=== PATIENT | male | born 1965 | race Caucasian/White ===

== ENCOUNTER 2017-06-25 06:50 | Day surgery (SDC) | payer OTHER ==
[~2017-06-25] VITALS: Ht 180.3 cm; Wt 113.4 kg
[~2017-06-25 06:50] MED LIST: CYCLOBENZAPRINE5 MG PO; DAILY MULTIPLE1 EACH PO; FISH OIL 1,0001 EAC2 NG; LOSARTAN POTASS25 MG PO; METFORMIN HCL500 MG PO; NORCO 7.5-3251 EACH PO; ULTRAM50 MG PO
--- NOTE | 2017-06-25 09:50 | NUR ---
06/25/17 0950 Kierra Iglesias 0938 PATIENT ARRIVES TO PACU SLEEPING, NODS HEAD WITH VERBAL STIMULI. RESP EVEN AND UNLABORED, SNORING AT TIMES. MASK AT 6 LITERS. 0942 PATIENT TOOK HIS MASK OFF, ROOM AIR SATS 90-93% ON ROOM AIR. ICE TO RIGHT SHOULDER. SLING IN PLACE FROM OR. 0950 PATIENT AWAKE OFF/ON. RESP EVEN AND UNLABORED. DENIES PAIN OR NAUSEA.
--- NOTE | 2017-06-25 10:14 | NUR ---
PT UP TO BR W/RN STANDBY. PT AMBULATES WELL AND DENIES DIZZINESS. PT VOIDS AND IS BACK IN BED. PHONE CALL TO PT'S GIRLFRIEND TO LET HER KNOW HE WILL BE READY IN ABOUT AN HOUR. CALL LIGHT W/IN REACH. COFFEE AND ICED WATER GIVEN.
--- NOTE | 2017-06-25 11:06 | NUR ---
VERBAL DC INSTRUCTIONS GIVEN IN PRESENCE OF SIGNIFICANT OTHER AND BOTH VERBALIZE UNDERSTANDING.
--- NOTE | 2017-06-25 11:20 | NUR ---
PT DRESSES SELF IN PRESENCE OF SIGNIFICANT OTHER AND TRANSFERS HIMSELF TO THE WELL.
--- NOTE | 2017-06-30 07:11 | OR ---
[facility] [address] [place], [place] [address] Signed DATE OF OPERATION: 06/25/2017 SURGEON: Brandon Cm MD PREOPERATIVE DIAGNOSIS: Loose bodies, right shoulder. POSTOPERATIVE DIAGNOSIS: Loose bodies, right shoulder. PROCEDURE: Shoulder arthroscopy with removal of loose bodies via morselization. ANESTHESIA: General. SPECIMENS AND COMPLICATIONS: There were no specimens or complications. TOURNIQUET: Not used. BLOOD LOSS: Minimal. WHAT WAS DONE: The patient was taken to the operating room. After anesthesia was induced and the airway secured, the patient was positioned, prepped and draped in a routine sterile fashion. The bony topography was outlined with a skin marking pen and the arthroscope was inserted through the standard posterior portal. An auxiliary anterior portal was created using a switching stick technique. Nerve hook was introduced anteriorly. Diagnostic arthroscopy was performed. The rotator cuff was unremarkable as was the biceps. There were significant degenerative changes on the anterior inferior aspect of the glenoid with some minor reciprocal changes on the humeral head. The subscap was unremarkable. There was a rather significant synovitis into the subscapular recess. We then switched to the 70-degree scope. We did a limited synovectomy of the anterior subscapular pouch and the loose body was actually not loose at all. He was actually attached to some underlying soft tissue and was not freely mobile. We made another auxiliary anterior portal using a switching stick technique again and used the 4.0 mm shaver to morselize the loose body and suctioned out of the shoulder. The wound was Electronically Signed By: BRANDON CM MD 06/30/17 0711 PATIENT NAME: GABBY ORR OPERATIVE REPORT DATE OF : 63 REPORT #: [id number] PHYSICIAN: BRANDON CM MD PCP: Ofe LINDSEY MD REPORT IS CONFIDENTIAL AND NOT TO BE RELEASED WITHOUT AUTHORIZATION [facility] [address] [place], [place] [address] Signed then gently irrigated and the incisions were closed. Sterile dressing was applied. The patient was awakened and taken to recovery room where he arrived in stable condition. Counts were correct and antibiotic protocols were followed. Brandon Cm MD WFB/MODL /[id number] Copies: ~ Electronically Signed By: BRANDON CM MD 06/30/17 0711 PATIENT NAME: GABBY ORR OPERATIVE REPORT DATE OF : 63 REPORT #: [id number] PHYSICIAN: BRANDON CM MD PCP: Ofe LINDSEY MD REPORT IS CONFIDENTIAL AND NOT TO BE RELEASED WITHOUT AUTHORIZATION
== END 2017-06-25 11:20 | disposition home or self-care (01) ==
LOC: DS 06:50
PROVIDERS: Orthopaedic Surgery
PROC: 0RCJ4ZZ Extirpation of Matter from Right Shoulder Joint, Percutaneous Endoscopic Approach (ICD-10-PCS; principal; 2017-06-25 08:00)
DX: M24.011 Loose body in right shoulder (principal); I10 Essential (primary) hypertension; G47.30 Sleep apnea, unspecified; E11.9 Type 2 diabetes mellitus without complications; M19.90 Unspecified osteoarthritis, unspecified site; Z87.891 Personal history of nicotine dependence; Z79.84 Long term (current) use of oral hypoglycemic drugs; Z79.899 Other long term (current) drug therapy
CPT/HCPCS: 01630; 64415; 76942; J0690; J1100; J1885; J2250; J2405; J2704; J2765; J2795; J3010; J7120

== ENCOUNTER 2017-06-25 13:03 | Emergency (ER) | payer OTHER, BC ==
[~2017-06-25] VITALS: Ht 180.3 cm; Wt 113.4 kg
== END 2017-06-25 15:03 | disposition home or self-care (01) ==
LOC: ED 13:03
DX: G56.81 Other specified mononeuropathies of right upper limb (principal); R06.00 Dyspnea, unspecified; E11.9 Type 2 diabetes mellitus without complications; Z88.5 Allergy status to narcotic agent; Z79.899 Other long term (current) drug therapy; Z79.84 Long term (current) use of oral hypoglycemic drugs
CPT/HCPCS: 71046; 99283

== ENCOUNTER 2020-08-27 22:22 | Emergency (ER) | payer BC ==
[~2020-08-27] VITALS: Ht 180.3 cm; Wt 111.1 kg
[~2020-08-27 22:22] MED LIST changes: +TRULICITY0.75 MG/0. SQ
[2020-08-27] MEDS ORDERED: CEPHALEXIN500 MG PO (23:24)
== END 2020-08-27 23:35 | disposition home or self-care (01) ==
LOC: ED 22:22
DX: S91.331A Puncture wound without foreign body, right foot, initial encounter (principal); Z23 Encounter for immunization; E11.9 Type 2 diabetes mellitus without complications; I10 Essential (primary) hypertension; Z88.5 Allergy status to narcotic agent; Z79.899 Other long term (current) drug therapy; Z79.84 Long term (current) use of oral hypoglycemic drugs; W22.8XXA Striking against or struck by other objects, initial encounter
CPT/HCPCS: 90471; 90715; 99283

== ENCOUNTER 2023-09-25 06:26 | Day surgery (SDC) | payer BC ==
[~2023-09-25] VITALS: Ht 180.3 cm; Wt 109.5 kg
[~2023-09-25 06:26] MED LIST changes: +CELEBREX200 MG PO; +CEPHALEXIN500 MG PO; +HYDROCHLOROTH12.5 M1 PO; +MIDAZOLAM HCL 5 MG/5 ML VIAL IV PRN; +OZEMPIC2 MG/0.75 SUB-Q; +TRULICITY3 MG/0.5 M SUB-Q; +fentaNYL citrate 100 MCG/2 ML VIAL IV PRN
[2023-09-25 06:41] VITALS: BP 131/85
[2023-09-25] MEDS ORDERED: MIDAZOLAM HCL 5 MG/5 ML VIAL ONE (06:42)
[2023-09-25] MEDS ORDERED: fentaNYL citrate 100 MCG/2 ML VIAL ONE (06:43)
[2023-09-25] MEDS ORDERED: CINNAMON500 MG PO (06:46)
[2023-09-25] MEDS ORDERED: SILDENAFIL CITR50 MG PO (06:46)
[2023-09-25] MEDS ORDERED: MIDAZOLAM HCL 2 MG/2 ML VIAL ONE (06:46)
[2023-09-25] MEDS ORDERED: LACTATED RINGER'S 1,000 ML IV SCH (07:00)
[2023-09-25] MEDS ORDERED: LIDOCAINE HCL 1% 5 ML SDV INJ ONE (07:00)
[2023-09-25] MEDS ORDERED: IBLOOD GLUCOSE TEST STRIP 1 EA TEST VI PRN (07:00)
--- NOTE | 2023-09-25 07:27 | NUR ---
PRE-OP VISIT DURING SPIRITUAL CARE ROUNDS. PT IN OVERALL GOOD SPIRITS; NO SIGNS OF ANXIETY. CRATE MAKER PROVIDED SUPPORTIVE PRESENCE, HOSPITALITY, PRAYER. PT EXPRESSED GRATITUDE.
--- NOTE | 2023-09-25 08:12 | NUR ---
09/25/23 0812 Rosibel Rene 0805- PT PRESENTS TO PACU, LEFT LATERAL POSITION, AWAKE BUT DROWSY. DENIES PAIN AND NAUSEA. ABD ROUND, SOFT, NON DISTENDED. PT ENCOURAGED TO PASS GAS. O2 AT 2L PER NC, BREATHING EVEN AND NON LABORED. LR INFUSING TO RH IV. ALL MONITORS IN PLACE. 0811- PT WAKES EASILY TO VERBAL STIMULI, MOVED TO ROOM AIR AT THIS TIME.
[2023-09-25 08:54] VITALS: BP 115/85
--- NOTE | 2023-09-28 13:20 | OR ---
[facility] [address] [place], [place] [address] Signed DATE OF OPERATION: 09/25/2023 SURGEON: Kandy Wise MD PREOPERATIVE DIAGNOSIS: History of tubular adenomas in 2020. POSTOPERATIVE DIAGNOSIS: Small polyp, left colon. PROCEDURE: Total colonoscopy to cecum with cold morcellation polypectomy x1. ANESTHESIA: Intravenous sedation; fentanyl 100 mcg and Versed 6 mg. INDICATION: This 58-year-old white man is a patient of Dr. Faby Rivera, who underwent colonoscopy by me in 2020, at which time he had two tubular adenomas. He has no symptoms of bleeding, diarrhea, or constipation and no family history of colon cancer. He is admitted at this time to undergo colonoscopy for surveillance. He understands the risk of bleeding, infection, and perforation. FINDINGS: The prep was good. Complete colonoscopy was undertaken of the cecum. There was one small polyp of the left colon, which was excised with cold morcellation technique. DESCRIPTION OF PROCEDURE: The patient was brought to the endoscopy suite and placed in the lateral decubitus position, given intravenous sedation to the point of slurred speech and nystagmus. Digital rectal examination was normal. An Olympus video colonoscope was passed in the rectum and manipulated throughout the colon noting a small polyp of the left colon. This was excised with cold morcellation technique. The scope was advanced beyond this ultimately to the cecum with good visualization of the cecum. The scope was then withdrawn and examination throughout showed no sign of abnormality. The previous polypectomy site showed good hemostasis. Retroflexed view of the rectum showed some internal hemorrhoidal change, but no other findings. The scope was removed and the patient was taken to recovery room in good condition. Electronically Signed By: KANDY WISE MD 09/28/23 1320 PATIENT NAME: GABBY ORR OPERATIVE REPORT DATE OF : 63 REPORT #: [id number] PHYSICIAN: KANDY WISE MD PCP: FABY RIVERA MD REPORT IS CONFIDENTIAL AND NOT TO BE RELEASED WITHOUT AUTHORIZATION [facility] [address] [place], [place] [address] Signed CONCLUDING DIAGNOSIS: Polyp left colon, excised. PLAN: Recommend repeat colonoscopy in 3 to 5 years, sooner if symptoms should develop. He will return to the ongoing care of Dr. Faby Rivera. Kandy Wise MD JM/MODL /[id number] cc: Faby Rivera MD Copies: FABY RIVERA DMD ~ Electronically Signed By: KANDY WISE MD 09/28/23 1320 PATIENT NAME: GABBY ORR OPERATIVE REPORT DATE OF : 63 REPORT #: [id number] PHYSICIAN: KANDY WISE MD PCP: FABY RIVERA MD REPORT IS CONFIDENTIAL AND NOT TO BE RELEASED WITHOUT AUTHORIZATION
--- NOTE | 2023-09-30 14:09 | PATH ---
[facility] [address] [place], [place] [address] Signed SPECIMEN(S): A DESCENDING/LEFT COLON POLYP SPECIMEN SOURCE: A. DESCENDING/LEFT COLON POLYP CLINICAL HISTORY: Colonoscopy. Two tubular adenomas in 2020. FINAL PATHOLOGIC DIAGNOSIS: Descending/left colon polyp: - Tubular adenoma (two fragments). JVR:albin MICROSCOPIC EXAMINATION: Histologic sections of all submitted blocks are examined by light microscopy. These findings, together with the gross examination, support the pathologic diagnosis. GROSS DESCRIPTION: The specimen, labeled and designated "Snively, descending colon polyp," is received in formalin and consists of two sutton soft tissue fragments, ranging from 0.2 cm. Entirely submitted in (A1). JS (under the direct supervision of a pathologist) The Gross Description was prepared using a voice recognition system. The report was reviewed for accuracy; however, sound-alike word errors, addition and/or deletions may occur. If there is any question about this report, please contact Client Services. ADDITIONAL NOTES: Immunohistochemical and/or in situ hybridization studies if performed in this case included appropriate positive controls that reacted as expected. This test was developed and its performance characteristics determined by [facility]. It has not been cleared or approved by the U.S. Food and Drug Administration. The FDA has determined that such clearance or approval is not necessary. This test is used for clinical purposes. It should not be regarded as investigational or for research. [facility] is certified under the Clinical Laboratory Improvement Amendments of 1988 (CLIA) as qualified to perform high complexity clinical laboratory testing. PATIENT NAME: GABBY ORR PATHOLOGY DATE OF : 63 REPORT #: [id number] PHYSICIAN: TETO MCKEON PCP: FABY RIVERA MD REPORT IS CONFIDENTIAL AND NOT TO BE RELEASED WITHOUT AUTHORIZATION [address], [place] [address] Signed PERFORMING LABORATORY: Technical component was performed by [facility], [address] [place] [address] (CLIA# [id number]). Professional interpretation was performed by [facility] [address] [address] (CLIA#: [id number]). Diagnostician: Shashi Mayer MD Pathologist Electronically Signed 09/30/2023 Copies: ~ PATIENT NAME: GABBY ORR PATHOLOGY DATE OF : 63 REPORT #: [id number] PHYSICIAN: TETO MCKEON PCP: FABY RIVERA MD REPORT IS CONFIDENTIAL AND NOT TO BE RELEASED WITHOUT AUTHORIZATION
== END 2023-09-25 09:00 | disposition home or self-care (01) ==
LOC: OPS 06:26 → DS 06:26 → OPS 06:27 → DS 07:30 → DSVR 09:00 → OPS 09:00 → DS 09:00
PROVIDERS: ATTEND Surgery
PROC: 0DBG8ZZ Excision of Left Large Intestine, Via Natural or Artificial Opening Endoscopic (ICD-10-PCS; principal; 2023-09-25 07:30)
DX: Z12.11 Encounter for screening for malignant neoplasm of colon (principal); D12.4 Benign neoplasm of descending colon; K63.5 Polyp of colon; E66.01 Morbid (severe) obesity due to excess calories; E11.9 Type 2 diabetes mellitus without complications; Z68.42 Body mass index [BMI] 45.0-49.9, adult; Z79.84 Long term (current) use of oral hypoglycemic drugs; Z79.899 Other long term (current) drug therapy; Z87.11 Personal history of peptic ulcer disease; Z96.662 Presence of left artificial ankle joint; Z98.890 Other specified postprocedural states
CPT/HCPCS: 99153; G0500; J2250; J3010; J7121